=== PATIENT | male | born 1935 | race Caucasian/White ===

== ENCOUNTER 2017-07-11 09:39 | Day surgery (SDC) | payer OTHER ==
[2017-07-11] MEDS ORDERED: LR 1,000 ML IV ONE (09:55)
--- NOTE | 2017-07-11 11:23 | PDANEPAE ---
ANE History of Present Illness H/O POLYPS ANE Past Medical History - Cardiovascular History Hx Hypertension: Yes Hx Arrhythmias: No Hx Chest Pain: No Hx Coronary Artery / Peripheral Vascular Disease: Yes Cardiovascular History Comment: HX MD with 5 stent placed @12 yrs ago - Pulmonary History Hx COPD: No Hx Asthma/Reactive Airway Disease: No Hx Recent Upper Respiratory Infection: No Hx Oxygen in Use at Home: No Hx Sleep Apnea: No Sleep Apnea Screening Result - Last Documented: Positive - Neurologic History Hx Cerebrovascular Accident: No Hx Seizures: No Hx Dementia: No - Endocrine History Hx Diabetes: No - Renal History Hx Renal Disorders: No - Liver History Hx Hepatic Disorders: No - Neurological & Psychiatric Hx Hx Neurological and Psychiatric Disorders: No - Cancer History Hx Cancer: No - Congenital Disorder History Hx Congenital Disorders: No - GI History Hx Gastrointestinal Disorders: No - Other Health History Other Health History: none - Chronic Pain History Chronic Pain: No - Surgical History Prior Surgeries: CEA 2006. CARPAL TUNNEL RELEASE 05/19 ANE Review of Systems Review of Systems: - Exercise capacity METS (RN): 5 METS ANE Patient History - Allergies Allergies/Adverse Reactions: cephalexin monohydrate [From Keflex] Allergy (Verified 07/10/17 17:59) Rash esomeprazole magnesium [From Nexium] Allergy (Verified 07/10/17 17:59) Rash Iodinated Contrast- Oral and IV Dye Allergy (Verified 07/10/17 18:02) Other-Enter Comments Sulfa (Sulfonamide Antibiotics) Allergy (Verified 07/10/17 17:59) Rash - Home Medications Home Medications: Alfuzosin HCl [Uroxatral 10 MG] 02/04/14 [Last Taken 07/11/17] Carvedilol [Coreg (RX)] 02/04/14 [Last Taken 02/03/14] Carvedilol [Coreg] 02/04/14 [Last Taken 07/11/17] Clopidogrel Bisulfate [Plavix (RX)] 02/04/14 [Last Taken 07/11/17] Finasteride [Proscar] 02/04/14 [Last Taken 07/11/17] Lisinopril [Zestril 10 mg (RX)] 02/04/14 [Last Taken 07/11/17] Thyroid [[place] Thyroid] 02/04/14 [Last Taken 07/11/17] - NPO status NPO Since - Liquids (Date): 07/11/17 NPO Since - Liquids (Time): 01:30 NPO Since - Solids (Date): 07/09/17 NPO Since - Solids (Time): 09:00 - Smoking Hx Smoking Status: Former smoker - Family Anes Hx Family Hx Anesthesia Complications: none ANE Labs/Vital Signs - Vital Signs Blood Pressure: 163/89 Heart Rate: 60 Respiratory Rate: 16 O2 Sat (%): 97 Height: 182.88 cm Weight: 89.811 kg ANE Physical Exam - Airway Neck exam: FROM Mallampati Score: Class 1 Mouth exam: normal dental/mouth exam - Pulmonary Pulmonary: no respiratory distress - Cardiovascular Cardiovascular: regular rate and rhythym - ASA Status ASA Status: III ANE Anesthesia Plan Total IV Anesthesia: Yes
[2017-07-11] MEDS ORDERED: PROPOFOL 200 MG/20 ML VIAL ONE (11:29)
--- NOTE | 2017-07-11 11:31 | PDGENHP ---
History & Physical Chief Complaint: fam h/o colon cancer History of Present Illness: change in BM post sugery Pertinent Past, Social, Family History: fam h/o cc Relevant Physical Exam: cv rrr s1s2 nl. chest cta. abd + bs soft Cardiorespiratory Assessment: asa iii
[2017-07-11] MEDS ORDERED: NALOXONE HCL 0.4 MG/ML INJ IVP PRN (11:39)
--- NOTE | 2017-07-11 11:57 | GIREPORT ---
[facility] Surgical Services - Endoscopy Department Patient Name: Mauricio Sepulveda Procedure Date: 07/11/2017 11:15 AM Patient Type: Outpatient Attending MD/ ER Physician: Annette Kay MD Procedure: Colonoscopy Indications: Screening for colorectal malignant neoplasm, Screening in patient at increased risk: Family history of 1st-degree relative with colorectal cancer, Incidental change in bowel habits noted improved Providers: Annette Kay MD Medicines: Monitored Anesthesia Care Complications: No immediate complications. Description of Procedure: After obtaining informed consent, the scope was passed under direct vis ion. Throughout the procedure, the patient's blood pressure, pulse, and oxyg en saturations were monitored continuously. The Colonoscope with irrigatio n channel was introduced through the anus and advanced to the terminal il eum. The colonoscopy was performed without difficulty. The patient tolerated the procedure well. The quality of the bowel preparation was good. The term inal ileum, ileocecal valve, appendiceal orifice, and rectum were photograph ed. Findings: The perianal and digital rectal examinations were normal. Multiple diverticula were found in the sigmoid colon, descending colon and ascending colon. A 5 mm polyp was found in the sigmoid colon. The polyp was sessile. The polyp was removed with a cold biopsy forceps. Resection and retrieval w ere complete. Estimated blood loss was minimal. Hemorrhoids were found during retroflexion. Estimated Blood Loss: Estimated blood loss was minimal. Post Op Diagnosis: - Diverticulosis in the sigmoid colon, in the descending colon and in t he ascending colon. - One 5 mm polyp in the sigmoid colon, removed with a cold biopsy force ps. Resected and retrieved. - Hemorrhoids. Recommendation: - Await pathology results. - Patient has a contact number available for emergencies. The signs and symptoms of potential delayed complications were discussed with the pat ient. Return to normal activities tomorrow. Written discharge instructions we re provided to the patient. - High fiber diet. - Continue present medications. - Suggest supplemental fiber daily and Miralax is needed for constipati on - No repeat colonoscopy due to age. - Discharge patient to home. - Thank you for allowing me to participate in the care of your patient. Attending Participation: I personally performed the entire procedure. Annette Kay MD Annette Kay MD 07/11/2017 11:56:44 AM This report has been signed electronicallyAnnette Kay MD Number of Addenda: 0 Note Initiated On: 07/11/2017 11:15 AM Total Procedure Duration Time 0 hours 16 minutes 24 seconds [email or web address]
--- NOTE | 2017-07-11 11:58 | POSTANESTH ---
Post Anesthetic Evaluation Cardiovascular Status: Normal, Stable Respiratory Status: Normal, Stable Level of Consciousness/Mental Status: Can Participate in Eval Pain Control: Adequate, Prn Tx Ordered Nausea/Vomiting Control: Adequate, Prn Tx Ordered Complications Possibly Related to Anesthesia: None Noted
[2017-07-11 12:25] VITALS: BP 153/80
== END 2017-07-11 12:30 | disposition home or self-care (01) ==
LOC: FSGY 09:39
PROVIDERS: ATTEND Internal Medicine Gastroenterology
PROC: 0DBE8ZX Excision of Large Intestine, Via Natural or Artificial Opening Endoscopic, Diagnostic (ICD-10-PCS; principal; 2017-07-11 11:45)
DX: Z12.11 Encounter for screening for malignant neoplasm of colon (principal); D12.5 Benign neoplasm of sigmoid colon; Z87.19 Personal history of other diseases of the digestive system; Z80.0 Family history of malignant neoplasm of digestive organs; Z87.891 Personal history of nicotine dependence
CPT/HCPCS: J2704

== ENCOUNTER → 2017-07-30 | Outpatient (CLI) | payer OTHER | LOC: BHFA 13:00 | PROVIDERS: ATTEND Internal Medicine Cardiovascular Disease | DX: I25.10 Atherosclerotic heart disease of native coronary artery without angina pectoris (principal); I44.0 Atrioventricular block, first degree; I10 Essential (primary) hypertension; I25.2 Old myocardial infarction; R53.83 Other fatigue; E78.00 Pure hypercholesterolemia, unspecified ==

== ENCOUNTER → 2017-08-05 | Outpatient (CLI) | payer OTHER | LOC: BHFA 11:30 | PROVIDERS: ATTEND Internal Medicine Cardiovascular Disease | DX: I25.10 Atherosclerotic heart disease of native coronary artery without angina pectoris (principal) ==

== ENCOUNTER → 2017-08-12 | Outpatient (CLI) | payer OTHER | LOC: BHFA 09:30 | PROVIDERS: ATTEND Internal Medicine Interventional Cardiology | DX: I25.10 Atherosclerotic heart disease of native coronary artery without angina pectoris (principal) | CPT/HCPCS: 78452; 93017; A9500; J2785 ==